=== PATIENT | female | born 1955 | race Caucasian/White ===

== ENCOUNTER 2020-10-06 15:39 | Emergency (ER) | payer BC ==
[~2020-10-06] VITALS: Ht 154.9 cm; Wt 59.0 kg
[2020-10-06] MEDS ORDERED: ZOFRAN4 MG SL (15:56)
[2020-10-06] MEDS ORDERED: TYLENOL # 31 EA PO (15:56)
[2020-10-06] MEDS ORDERED: TESSALON PERLE100 MG PO (15:56)
== END 2020-10-06 17:11 | disposition home or self-care (01) ==
LOC: ER 15:50
DX: U07.1 COVID-19 (principal); R50.9 Fever, unspecified; R05 Cough; R06.00 Dyspnea, unspecified
CPT/HCPCS: 99282